=== PATIENT | female | born 1995 | race Caucasian/White ===

== ENCOUNTER → 2019-12-14 12:48 | Outpatient (CLI) | payer BC, SELFPAY ==
[2019-12-15 13:11] LABS: Covid-19 Nasal PCR Sendout Lex POSITIVE
== END ==
PROVIDERS: PCP Internal Medicine Adolescent Medicine; Visit Provider Internal Medicine Adolescent Medicine
DX: U07.1 COVID-19 (principal)
CPT/HCPCS: U0004

== ENCOUNTER → 2020-02-28 10:57 | Outpatient (CLI) | payer BC, SELFPAY ==
--- NOTE | 2020-02-28 11:01 | XR_ITS ---
PROCEDURE: XR PELVIS 1-2V CLINICAL INDICATION: misplaced iud COMPARISON: No exams were available for comparison TECHNIQUE: XR Pelvis AP View FINDINGS: There is an IUD in place. There is malpositioning of the IUD with the IUD rotated toward the left 90 degrees from a normal location. Intrauterine location cannot be confirmed based on this single AP view. No significant degenerative change. No lytic or blastic change. IMPRESSION: Malpositioned IUD which is noted in the upper pelvic region is rotated clockwise by 90 degrees from a normal expected position. Cannot confirm intrauterine location based on single view. Dictated by: Uriah Kamara MD 02/28/2020 11:25 Uriah Kamara MD in [place] 02/28/2020 11:25
== END ==
PROVIDERS: PCP Internal Medicine Adolescent Medicine; Visit Provider Obstetrics & Gynecology
DX: T83.32XA Displacement of intrauterine contraceptive device, initial encounter (principal); T83.39XA Other mechanical complication of intrauterine contraceptive device, initial encounter
CPT/HCPCS: 72170

== ENCOUNTER → 2020-03-01 15:27 | Outpatient (CLI) | payer BC, SELFPAY ==
[2020-03-01 16:59] LABS: Basophils % 0.4 % (0.1-2.0); Eosinophils # 0.1 K/mm3 (0.0-0.4); Eosinophils % 1.1 % (0.1-12.0); Hematocrit 40.5 % (37.0-47.0); Lymphocytes # 3.3 K/mm3 (0.7-4.5); Lymphocytes % 45.6 % (10-50); Mean Corpuscular HGB Conc 32.1 g/dL (31.8-35.4); Mean Corpuscular Hemoglobin 29.4 pg (27.0-31.2); Mean Corpuscular Volume 91.5 fl (81-99); Mean Platelet Volume 6.9 fl (7.4-10.4); Monocytes # 0.6 K/mm3 (0.1-1.0); Neutrophils # 3.1 K/mm3 (1.8-7.8); Neutrophils % 43.9 % (37.0-80.0); Platelet Count 298 K/mm3 (142-424); Red Blood Count 4.43 M/mm3 (4.20-5.40); Red Cell Distribution Width 12.4 % (11.5-17.5); White Blood Count 7.2 K/mm3 (4.8-10.8)
[2020-03-01 18:01] LABS: Alanine Aminotransferase 19 U/L (12-78); Albumin Level 4.8 g/dl (3.5-5.0); Alkaline Phosphatase 75 U/L (38-126); Aspartate Amino Transferase 24 U/L (14-36); Bilirubin,Total 0.5 mg/dl (0.2-1.3); Blood Urea Nitrogen 13 mg/dl (7-17); Carbon Dioxide 28 mmol/L (22.0-30.0); Chloride 103 mmol/L (98-107); Potassium 3.8 mmoL/L (3.5-5.1); Sodium 142 mmol/L (136-145); Total Protein,Serum 7.5 g/dl (6.3-8.2)
[2020-03-01 18:15] LABS: Calcium 9.8 mg/dl (8.4-10.2); Glucose 96 mg/dl (74-100)
[2020-03-01 19:16] LABS: HCG Qualitative, Serum Negative (Negative)
[2020-03-01 19:41] LABS: Anion Gap 14.8 mEq/L (5-15); GFR (African American) 149 ML/MIN (>60)
[2020-03-01 19:42] LABS: Albumin/Globulin Ratio 1.8 (1.1-1.8); Estimated Glomerular Filt Rate 123 ml/min (>60); Globulin 2.7 g/dL (1.3-3.2)
[2020-03-01 19:50] LABS: Coronavirus 19 IgG Antibody Positive (Negative); Coronavirus 19 IgM Antibody Negative (Negative)
[2020-03-01 21:22] LABS: Amphetamine/Metha Screen,Urine Negative ng/ml (<1000); Benzodiazepines Screen,Urine Negative ng/ml (<200)
[2020-03-01 21:23] LABS: Barbiturates Screen,Urine Negative ng/ml (<200)
[2020-03-01 21:24] LABS: Cannabinoid Screen,Urine Negative ng/ml (<50); Cocaine Screen,Urine Negative ng/ml (<300)
[2020-03-01 21:25] LABS: Methadone Screen,Urine Negative ng/ml (<300)
[2020-03-01 21:26] LABS: Opiate Screen,Urine Negative ng/ml (<300); Phencyclidine Screen,Urine Negative ng/ml (<25)
== END ==
PROVIDERS: Visit Provider Obstetrics & Gynecology
DX: Z01.818 Encounter for other preprocedural examination (principal); R10.2 Pelvic and perineal pain; T83.9XXA Unspecified complication of genitourinary prosthetic device, implant and graft, initial encounter; T83.32XA Displacement of intrauterine contraceptive device, initial encounter
CPT/HCPCS: 36415; 80053; 80305; 84703; 85025; 86328

== ENCOUNTER 2020-03-03 10:53 | Day surgery (SDC) | payer BC, SELFPAY ==
[2020-03-01 11:22] VITALS: BMI 26.6
[2020-03-03] VITALS (11 sets, daily range): BP systolic 124–146; BP diastolic 68–92; PULSE 69–101; RESP 16–18; TEMP 36.2–36.7; O2SAT 97–99
--- NOTE | 2020-03-03 13:13 | P.PN_ITS ---
[facility] Anesthesia Checklist - Patient Identification Patient Identification: Arm Band, Verbal (Name & ) - Structural Data Admitted From: Home Planned Operative Procedure/s: ex lap Consent for Planned Operative Procedure(s) Verified: Yes Verified Documents: History and Physical - NPO Status Verified Time NPO: 00:00 - Chart Verification Results Verified: CBC, BMP - Additional verifications Patient : No Anesthesia Reactions: No Hx Blood Transfusions: No Blood Transfusion Reaction: No Cephalosporin Allergy: No Previous Colonoscopy: No - Cardiovascular Assessment Heart Sounds: S1 & S2 Pulse Strength: Baseline Pulse Rhythm: Regular Peripheral Edema: No - Airway Assessment C-Spine Mobility Assessed: Yes TMJ Mobility Assessed: Yes Dentition: Good Dentition - Neurological Assessment Level of Consciousness: Awake, Alert, Appropriate Hx Seizures: No Numbness or tingling in extremities: No - Anesthesia Plan Anesthesia Risk discussed: Yes Anesthesia Plan: Verified ASA Class: I Anesthesia Type: General [facility] History I have reviewed the patient's past medical history: Yes Medical History: Denies:: Cancer, Diabetes Mellitus Type 1, Diabetes Mellitus Type 2, MRSA, Seizures *Have you ever received a pneumonia vaccine?: No *Have you received a flu vaccine this season?: Yes Other Medical History: Denies: Blood Transfusion Reaction Anesthesia experience/problems:: none Other Surgeries: Yes: No Previous Surgery Amputation: No Fractures: No - *Social History Last grade of school completed: High school graduate Smoking Status: Never smoker Alcohol Intake: never Substance Use Type: denies use *Occupational Status:: employed *Travel in the last 8 weeks: None Family Hx:: Hypertension
--- NOTE | 2020-03-03 14:50 | P.PN_ITS ---
[facility] Anesthesia Record Part I Intake, IV Amount: 600 Estimated blood loss (mL): 10 Urine output (mL): 0 Blood Pressure: 140/77 SaO2: 98 Pulse Rate: 69 Respiratory Rate: 16 Temperature: 97.1 F Patient is:: Drowsy, Stable Stable to PACU at:: 14:45
--- NOTE | 2020-03-03 15:00 | HMH.OPNOTE ---
Date of procedure: 03/03/20 Pre-op Diagnosis:: 1. IUD located in abdominal cavity 2. Pelvic pain Post-op Diagnosis:: same Procedure performed:: 1. Diagnostic laparoscopy 2. Removal of abdominal foreign body (IUD) 3. Nexplanon insertion Surgeon:: Emma Wilkes MD [employer] OPERATOR:: Nuno Urrutiaty Anesthesia: GETA Estimated blood loss (mL): 5 Operative findings:: Mirena IUD located in abdomen, entangled in omentum Operative note:: The patient was taken to the operating room and general anesthesia was administered. She was prepped/draped in lithotomy position. A uterine manipulator was placed without difficulty. Gloves were changed and attention was turned to the abdomen. A 5mm skin incision was made in the umbilical fold and the Verees needle was inserted through the peritoneum and into the abdominal cavity in standard fashion. The abdomen was insufflated with CO2 gas. A 5mm non-bladed trocar was inserted directly into the abdominal cavity and appropriate placement was confirmed with the laparoscope. No intra-abdominal injuries occurred during entry into the abdominal cavity, as confirmed visually with the laparoscope. The patient was placed in trendelenburg and a 8mm skin incision was made 2cm above the pubic symphysis. A 8mm non-bladed trocar was inserted under direct visualization, without complication. The uterus was elevated out of the pelvis in order to better visualize the anatomy. The uterus was elevated for closer inspection, but the IUD was not located in the pelvic cul-de-sac. A search of the abdomen identified the IUD entangled in omentum in the right mid abdomen. No evidence of bowel injury was observed. The IUD string was grasped and the IUD was from the omentum. The IUD was then removed through the 8mm trocar, intact. It was sent for pathology. The pelvis and abdomen were irrigated with warmed normal saline. The uterine manipulator was removed. The abdomen was then evacuated of gas and all trocars removed. The skin incisions were closed with Dermabond. The inner aspect of left upper extremity prepped with Hibiclense Optimal insertion location identified and marked, approximately 10 cm distal to medial epicondyle 5cc lidocaine with epi injected subcutaneous in marked location Subdermal insertion of preloaded Nexplanon device using disposable applicator in same location, slightly anterior to mariano, in order to avoid subdermal transport of ink used to mariano the location The Nexplanon device was deployed into the desired subdermal location, without complication Successful placement of the (intact) device confirmed by palpation Insertion site hemostatic and bandage applied The patient tolerated the procedure well. Sponge/lap/needle/instrument counts were correct at conclusion of procedure. She was taken out of lithotomy position and awakened from anesthesia, and was taken to the recovery room in stable condition. Condition: stable Disposition: PACU Specimens:: IUD sent to pathology Complications:: none
--- NOTE | 2020-03-03 16:26 | HMH.ANESII ---
[facility] Anesthesia Record Part II Discharge Time: 15:20 Destination: Surgical Day Care (OP Surgery) PACU nurse assessment reviewed?: Yes Patient Condition:: Good Anesthesia Complications:: None Swallowing reflex intact?: Yes Cyanosis?: No Blood Pressure: 131/75 Pulse Rate: 74 Temperature: 97.6 F Mental Status: Alert & Oriented Pain level:: 0 Nausea and/or vomitting:: None Intake, IV Amount: 0
== END 2020-03-03 15:55 | disposition home or self-care (01) ==
LOC: OR 10:54
PROVIDERS: PCP Internal Medicine Adolescent Medicine; Visit Provider Obstetrics & Gynecology
PROC: (CPT 49320; principal; 2020-03-03 13:00)
DX: T83.32XA Displacement of intrauterine contraceptive device, initial encounter (principal); R10.2 Pelvic and perineal pain
CPT/HCPCS: 58301; 11981; 96374; J2405; J2710

== ENCOUNTER → 2022-08-16 10:43 | Outpatient (CLI) | payer BC, SELFPAY ==
[2022-08-16 13:03] LABS: Basophils # 0.1 K/mm3 (0-0.2); Basophils % 0.9 % (0.1-2.0); Eosinophils # 0.1 K/mm3 (0.0-0.4); Eosinophils % 1.3 % (0.1-12.0); Hematocrit 41.7 % (37.0-47.0); Hemoglobin 13.3 g/dL (12.2-16.2); Lymphocytes # 3.2 K/mm3 (0.7-4.5); Lymphocytes % 39.9 % (10-50); Mean Corpuscular HGB Conc 31.8 g/dL (31.8-35.4); Mean Corpuscular Hemoglobin 28.7 pg (27.0-31.2); Mean Corpuscular Volume 90.3 fl (81-99); Mean Platelet Volume 7.9 fl (7.4-10.4); Monocytes # 0.6 K/mm3 (0.1-1.0); Monocytes % 7.4 % (1.7-9.3); Neutrophils # 4.1 K/mm3 (1.8-7.8); Neutrophils % 50.4 % (37.0-80.0); Platelet Count 389 K/mm3 (142-424); Red Blood Count 4.61 M/mm3 (4.20-5.40); Red Cell Distribution Width 13.1 % (11.5-17.5); White Blood Count 8.1 K/mm3 (4.8-10.8)
[2022-08-16 14:03] LABS: Chloride 104 mmol/L (98-107); Sodium 139 mmol/L (136-145)
[2022-08-16 14:05] LABS: Blood Urea Nitrogen 11 mg/dl (7-17); Estimated Glomerular Filt Rate 120 ml/min (>60); GFR (African American) 145 ML/MIN (>60)
[2022-08-16 14:06] LABS: Alanine Aminotransferase 19 U/L (12-78); Albumin Level 4.8 g/dl (3.5-5.0); Albumin/Globulin Ratio 1.6 (1.1-1.8); Alkaline Phosphatase 67 U/L (38-126); Aspartate Amino Transferase 23 U/L (14-36); Bilirubin,Total 0.4 mg/dl (0.2-1.3); Calcium 9.7 mg/dl (8.4-10.2); Carbon Dioxide 26 mmol/L (22.0-30.0); Glucose 101 mg/dl (74-100); Total Protein,Serum 7.8 g/dl (6.3-8.2)
[2022-08-16 14:27] LABS: HCG,Quantitative < 2 mIU/ml (0-5.42)
== END ==
PROVIDERS: PCP Nurse Practitioner Family; Visit Provider Nurse Practitioner Obstetrics & Gynecology
DX: Z30.09 Encounter for other general counseling and advice on contraception (principal)
CPT/HCPCS: 36415; 80053; 84702; 85025

== ENCOUNTER 2022-08-20 07:41 | Day surgery (SDC) | payer BC, SELFPAY ==
[2022-08-15 13:35] VITALS: BMI 30.9
[2022-08-20] VITALS (10 sets, daily range): BP systolic 123–161; BP diastolic 51–91; PULSE 68–109; RESP 12–18; TEMP 36.3–43; O2SAT 92–99
--- NOTE | 2022-08-20 09:25 | EXP.ANES.CKL ---
[facility] Disclaimer: The information contained in this section may have been updated after the patient was seen, as this information can be updated by other users. Medical History Hypertension Family History Other Hypertension Social History (Updated 08/20/22 @ 08:12 by Marnie Rivero RN) Smoking Status: Never smoker alcohol intake: current substance use type: denies use current occupational status: employed Travel in the last 8 weeks: None [facility] Anesthesia Checklist Patient Identification Patient Identification: Arm Band and Verbal (Name & ) Structural Data Admitted From: Home Planned Operative Procedure/s: Laparascopic Bilateral Salpingectomy Consent for Planned Operative Procedure(s) Verified: Yes Verified Documents: Surgical Consent NPO Status Verified Time NPO: 00:00 Chart Verification Results Verified: None, CBC and HCG Additional verifications Anesthesia Reactions: No Hx Blood Transfusions: No Blood Transfusion Reaction: No Airway Assessment C-Spine Mobility Assessed: Yes TMJ Mobility Assessed: Yes Dentition: Good Dentition Neurological Assessment Level of Consciousness: Awake, Alert and Appropriate Anesthesia Plan Anesthesia Risk discussed: Yes ASA Class: I Anesthesia Type: General
--- NOTE | 2022-08-20 10:04 | EXP.ANES.II ---
[facility] Anesthesia Record Part II Anesthesia Record Part II Anesthesia Complications:: None
--- NOTE | 2022-08-20 10:05 | P.PNANES_ITS ---
[facility] Anesthesia Record Part I Anesthesia Record I Intake, IV Amount: 900 Estimated blood loss (mL): 50 Urine output (mL): 400 Blood Pressure: 123/51 SaO2: 92 Pulse Rate: 70 Respiratory Rate: 12 Temperature: 97.6 F Patient is:: Drowsy and Stable Stable to PACU at:: 10:04
--- NOTE | 2022-08-20 10:14 | P.OP_ITS ---
Date of procedure: 08/20/22 Pre-op Diagnosis:: Desire for sterilization Post-op Diagnosis:: Desire for sterilization Procedure performed:: Laparoscopic bilateral salpingectomy Surgeon:: Bright Guy MD MENTAL HEALTH COORDINATOR:: Iván Kwon Anesthesia: NICOLA Estimated blood loss (mL): 50 Clinical Note:: She is a 27-year-old lady who expressed desire for sterilization. The risks and benefits as well as the irreversibility of bilateral salpingectomy were discussed with the patient prior to surgery. Operative findings:: She had a normal-appearing anteverted uterus. The tubes appeared normal. They were followed to their fimbriated ends. The ovaries appeared normal. The deep pelvis appeared normal. The upper abdomen as well as the appendix appeared normal. The gallbladder was seen and appeared normal. Operative note:: She was taken to the operating room where general anesthesia was found be adequate. She was prepped and draped in normal sterile fashion in the semilithotomy position. A weighted speculum was placed in the vagina and the anterior lip of the cervix was grasped with a tenaculum. I then inserted a Tamela uterine manipulator into the cervical os. The balloon was then insufflated. I changed gloves and injected 10 cc of 0.5% ropivacaine around her umbilicus and made a small incision within the umbilicus. I inserted a Veress needle into the abdominal cavity. The peritoneal cavity was then insufflated with carbon dioxide gas to a pressure of 20 mmHg. I then inserted a 5 millimeter trocar under direct vision. I injected through and through the pubic hairline, made a small incision here and inserted an 8 mm trocar under direct vision. I identified the inferior epigastric artery on the left side, went lateral to these and injected through and through. I then placed a 5 mm trocar here under direct vision. The pelvis and upper abdomen were then inspected and the findings were as previously dictated. I grasped the right tube at the cornua and using harmonic scalpel on coagulation mode I cut through the tube. I then grasped the distal tube and using harmonic scalpel cut along the mesosalpinx. The tube was removed through 8 mm trocar site. This was similarly performed on the patient's left side. I then injected 30 cc of 0.5% ropivacaine into the pelvis. After assuring hemostasis the gas was let out of the abdomen and hemostasis was once again assured. The abdomen was then reinsufflated. The secondary trochars were removed under direct vision. The gas was let out her abdomen. The primary trocar was then removed. The 8 mm trocar site was closed deeply with 2-0 Vicryl suture followed by subcuticular 4-0 Monocryl suture. The 5 mm trocar sites were closed with subcuticular 4-0 Monocryl. The left lower quadrant trocar site had a small bleeder just underneath the skin and I used interrupted through and through sutures here to obtain excellent hemostasis and reapproximate the skin. Sterile dressings were applied. The patient tolerated the procedure well and was taken to the recovery room in excellent condition. All sponge instrument and needle counts were correct. The estimated blood loss was less than 50 cc. Condition: stable Disposition: PACU Specimens:: Bilateral fallopian tubes Complications:: None
--- NOTE | 2022-08-26 07:41 | EXP.ANES.II ---
[facility] Anesthesia Record Part II Anesthesia Record Part II Discharge Time: 10:34 Destination: Surgical Day Care (OP Surgery) PACU nurse assessment reviewed?: Yes Patient Condition:: Good Anesthesia Complications:: None Swallowing reflex intact?: Yes Cyanosis?: No Blood Pressure: 161/82 Pulse Rate: 97 Temperature: 97.3 F Mental Status: Alert & Oriented Pain level:: 0 Nausea and/or vomitting:: None Intake, IV Amount: 0
[2022-08-26 07:42] VITALS: BP 161/82; PULSE 97; TEMP 36.3
== END 2022-08-20 11:06 | disposition home or self-care (01) ==
PROVIDERS: PCP Nurse Practitioner Family; Visit Provider Nurse Practitioner Obstetrics & Gynecology
PROC: (CPT 58661; principal; 2022-08-20 09:15)
DX: Z30.2 Encounter for sterilization (principal)
CPT/HCPCS: 58661; 96374; J2405

== ENCOUNTER → 2023-03-05 14:01 | Outpatient (CLI) | payer BC, SELFPAY ==
[2023-03-05 14:50] LABS: Basophils # 0.1 K/mm3 (0-0.2); Basophils % 0.7 % (0.1-2.0); Eosinophils # 0.1 K/mm3 (0.0-0.4); Eosinophils % 1.2 % (0.1-12.0); Hematocrit 41.4 % (37.0-47.0); Hemoglobin 14.1 g/dL (12.2-16.2); Lymphocytes # 2.7 K/mm3 (0.7-4.5); Mean Corpuscular Hemoglobin 30.4 pg (27.0-31.2); Mean Corpuscular Volume 89.2 fl (81-99); Mean Platelet Volume 7.4 fl (7.4-10.4); Monocytes # 0.5 K/mm3 (0.1-1.0); Monocytes % 6.6 % (1.7-9.3); Neutrophils # 3.9 K/mm3 (1.8-7.8); Neutrophils % 54.5 % (37.0-80.0); Platelet Count 291 K/mm3 (142-424); Red Blood Count 4.64 M/mm3 (4.20-5.40); Red Cell Distribution Width 12.9 % (11.5-17.5); White Blood Count 7.2 K/mm3 (4.8-10.8)
[2023-03-05 16:36] LABS: Alanine Aminotransferase 40 U/L (12-78); Albumin Level 4.7 g/dl (3.5-5.0); Albumin/Globulin Ratio 1.6 (1.1-1.8); Alkaline Phosphatase 59 U/L (38-126); Anion Gap 15.9 mEq/L (5-15); Aspartate Amino Transferase 44 U/L (14-36); Bilirubin,Total 0.4 mg/dl (0.2-1.3); Blood Urea Nitrogen 10 mg/dl (7-17); Calcium 9.7 mg/dl (8.4-10.2); Carbon Dioxide 25 mmol/L (22.0-30.0); Chloride 103 mmol/L (98-107); Estimated Glomerular Filt Rate 86 ml/min (>60); GFR (African American) 104 ML/MIN (>60); Glucose 109 mg/dl (74-100); Potassium 3.9 mmoL/L (3.5-5.1); Sodium 140 mmol/L (136-145); Total Protein,Serum 7.7 g/dl (6.3-8.2)
[2023-03-05 16:46] LABS: 25-OH Vitamin D, Total 37.9 ng/mL (30-100)
[2023-03-05 17:04] LABS: Thyroid Stimulating Hormone 2.31 uIU/mL (0.465-4.68)
[2023-03-05 17:22] LABS: Vitamin B12 425 pg/mL (239-931)
== END ==
PROVIDERS: PCP Nurse Practitioner Family; Visit Provider Nurse Practitioner Family
DX: Z00.00 Encounter for general adult medical examination without abnormal findings (principal); R53.83 Other fatigue; Z68.31 Body mass index [BMI] 31.0-31.9, adult
CPT/HCPCS: 36415; 80053; 82306; 82607; 84443; 85025

== ENCOUNTER 2023-10-15 11:32 | Emergency (ER) | payer BC, SELFPAY ==
[2023-10-15 11:45] VITALS: BP 129/84; PULSE 105; RESP 21; TEMP 37.6; O2SAT 97; BMI 30.2
--- NOTE | 2023-10-15 12:03 | EXP.UTC ---
Discharge Plan Disposition Patient Disposition: Home, Self-Care Condition: Good Prescriptions Prescriptions: No Action No Known Home Medications Referrals Follow up/Referrals: Bright Guy MD [Staff Physician] - 10/15/23 1:30 pm Erlinda Rivero APRN [Primary Care Provider] - See instructions Activity Restrictions/Add. Instructions Additional Instructions/Restrictions: Follow up with Dr Guy today as scheduled Call your Family Doctor and make appoitnment tomorrow Further care per your Family Doctor and Obgyn Clinical Impressions Clinical Impression: Abdominal discomfort Discharge ED Provider: Alberta Hancock [facility] HPI General Stated complaint: Lower abd pain R side Mode of Arrival: Ambulatory Source of Information: Patient Limitations: No Limitations Time Seen by Provider: 10/15/23 12:04 Description of Symptoms (Recalled from Triage Doc. by RN): PATIENT C/O RLQ PAIN THAT HAS BEEN INTERMITTEN FOR A WHILE AND VOMITING THAT STARTED YESTERDAY HEENT Symptoms (Recalled from RN notes): No Resp Symptoms (Recalled from RN notes): No Skin Symptoms (Recalled from RN notes): No MS Symptoms (Recalled from RN notes): No Functional Status (Recalled from RN notes): WNL History of Present Illness Provider Complaint: Patient states that she has been having pain in her right lower abdomen on and off states that yesterday she started with N/V States that pain is worse when she stands up States that she had appointment with PCP but decided to come in here instead states that she is not having any pain right now it is better Related Data Home Medications Medication Instructions Recorded Confirmed No Known Home Medications 10/06/23 10/15/23 Allergies Allergy/AdvReac Type Severity Reaction Status Date / Time No Known Allergies Allergy Verified 10/15/23 13:21 Worker's Comp Is this a Worker's Comp case?: No [facility] Disclaimer: The information contained in this section may have been updated after the patient was seen, as this information can be updated by other users. Medical History Anxiety Hypertension Surgical History H/O tubal ligation Family History Other Hypertension Social History Smoking Status: Never smoker alcohol intake: current alcohol intake frequency: holidays/special occasions only substance use type: denies use current occupational status: employed Travel in the last 8 weeks: None ROS Obtained: Yes All systems reviewed & no additional complaints except as documented and Yes Systems reviewed as appropriate & no additional complaints except as documented Constitutional Constitutional: Reports system reviewed and no additional complaints, except as documented, Reports as per HPI, Denies body ache, Denies chills and Denies fever(s) ENT Ears, Nose, Mouth, and Throat: Reports system reviewed and no additional complaints, except as documented and Reports as per HPI Cardiovascular Cardiovascular: Reports system reviewed and no additional complaints, except as documented and Reports as per HPI Respiratory Respiratory: Reports system reviewed and no additional complaints, except as documented and Reports as per HPI Gastrointestinal Gastrointestingal: Reports system reviewed and no additional complaints, except as documented, as per HPI, abdominal pain (Pain in right lower quad that comes and goes not hurting now) and vomiting Physical Exam General General appearance: alert and in no apparent distress ENT ENT exam: Present mucous membranes moist Respiratory Respiratory exam: Present normal lung sounds bilaterally; Absent respiratory distress or wheezes Cardiovascular Cardiovascular exam: Present regular rate, normal rhythm and normal heart sounds Abdominal Exam Abdominal exam: Present soft and normal bowel sounds; Absent distention, tenderness, guarding, rebound, rigidity or heel tap sign Neurological Exam Neurological exam: Present alert, oriented X3 and normal gait Medical Decision Making Kaz Inquiry Pt receiving controlled substance: No Kaz was queried for this patient: No Vital Signs: 10/15/23 11:45 Temperature 99.6 F Temperature Source Oral Pulse Rate [Left Brachial] 105 H Respiratory Rate 21 Blood Pressure [Left Arm] 129/84 Blood Pressure Mean [Left Arm] 99 Blood Pressure Source [Left Arm] Automatic Cuff Blood Pressure Position [Left Arm] Sitting 02 Sat by Pulse Oximetry 97 Oxygen Delivery Method Room Air Lab Data Lab results reviewed: Yes I reviewed the patient's lab results. Medical Decision Narrative: Patient states that she has been having pain on her right lower quad that has come and gone for awhile now States yesterday she had some N/V and started having the pain again State that she had an appointment with her PCP but canceled it and decided to come in here instead State that the pain has stopped now and no longer hurting Discussed with patient about transfer to the ED for furhter work up and evaluation but patient refused transfer states that she will now follow up with PCP Called PCP office and does have availability tomorrow Patient declined transfer to the ED spoke with OB Dept patient is a patient of Dr Sandoval Patient will do transvaginal US to rule out Ovarian cyst and she will follow up with Dr Sandoval today at 130 and PCP tomorrow for further evaluation for her concern of having gallbladder issues again discussed with patient and she does still have appendix, patient was educated and she is aware of risks and still declined transfer to the ED Patient dc'd to Dr Uriostegui office where he will read and discuss US findings
[2023-10-15 12:05] LABS: Apearance,Urine Clear (Clear); Bilirubin,Urine Negative (Negative); Blood, Urine Negative (Negative); Color,Urine Dark Yellow (Yellow); Glucose,Urine (UA) Negative (Negative); Ketones,Urine Negative (Negative); PH,Urine 5.5 (5.0-8.5); Protein,Urine Trace (Negative); Specific Gravity, Urine >= 1.030 (1.005-1.030); UTC Leukocyte Esterase,Urine Negative (Negative); UTC Nitrate,Urine Negative (Negative); Urobilinogen,Urine 0.2 EU/dl (0.2)
[2023-10-15 12:17] LABS: UTC Pregnancy Test, Urine Negative (Negative)
--- NOTE | 2023-10-15 12:22 | US_ITS ---
PROCEDURE: US TRANSVAGINAL CLINICAL INDICATION: ? right ovarian cyst COMPARISON: No exams were available for comparison FINDINGS: Transvaginal sonographic images of the pelvis were obtained. UTERUS: 7.9 cm x 6.6 cmx 5.6 cm retroverted and retroflexed with a combined endometrial thickness of 10.1mm. LEFT OVARY: 2.8 cmx1.3cm with a volume of . There are several small follicles in the left ovary. The largest measures 0.66 cm. RIGHT OVARY: 3.6 cmx 3.0cmx1.9 cm with a volume of 11ml. There is a follicle measuring 1.5 cm x 1.7 cm x 1.6 cm. The fluid has a lacy appearance consistent with a hemorrhagic cyst. The right ovary sits posterior to the uterus. Both ovaries are seen and appear normal. Doppler flow to both ovaries are seen. There is a small amount of fluid in the cul-de-sac. IMPRESSION: 1. Retroverted, retroflexed uterus normal in shape and size. 2. Left ovary is seen and appears normal. 3. The right ovary appears normal and has a 1.7 cm follicle consistent with a hemorrhagic cyst. 4. Small amount of fluid in the cul-de-sac. Dictated by: Bright Guy MD 10/15/2023 14:06 Bright Guy MD in [place] 10/15/2023 14:06
[2023-10-15 12:50] VITALS: BP 129/84; PULSE 105; RESP 21; TEMP 37.6; O2SAT 97
== END 2023-10-15 12:54 | disposition home or self-care (01) ==
PROVIDERS: Emergency Provider Nurse Practitioner; PCP Nurse Practitioner Family
DX: R10.31 Right lower quadrant pain (principal); R11.2 Nausea with vomiting, unspecified; B96.89 Other specified bacterial agents as the cause of diseases classified elsewhere
CPT/HCPCS: 76830; 81003; 81025; 87086; 99204; 99212; G0463

== ENCOUNTER 2024-12-23 08:06 | Outpatient (CLI) | payer BC, OTHER, SELFPAY ==
--- NOTE | 2024-12-23 08:30 | US_ITS ---
PROCEDURE: US TRANSVAGINAL CLINICAL INDICATION: right side abdominal/pelvic pain COMPARISON: US US TRANSVAGINAL from 10/15/2023 FINDINGS: Transvaginal sonographic images of the pelvis were obtained. UTERUS: 7.1cm x 6.2cmx 5.7 cm retroverted with a combined endometrial thickness of 7.6mm. LEFT OVARY: 3.6 cmx2.3cmx2.1cm with a volume of 9ml. There is a dominant follicle measuring 1.4 cm x 1.0 cm x 1.4 cm. There are multiple small peripheral follicles. RIGHT OVARY: 3.6 cm.6x 2.8 cmx2.1cm with a volume of 11.5ml. There is a dominant follicle measuring 1.56 cm There are several small peripheral follicles. Both ovaries are seen and appear normal. Doppler flow to both ovaries are seen. There is a moderate amount of fluid in the cul-de-sac. IMPRESSION: 1. Retroverted uterus normal in shape and size. The endometrium appears normal and measures 7.6 mm 2. Both ovaries are seen and appear normal. They both have a dominant follicle. Both ovaries have several small peripheral follicles. 3. There is a moderate amount of fluid in the cul-de-sac. Dictated by: Bright Guy MD 12/23/2024 14:37 Bright Guy MD in [place] 12/23/2024 14:37
== END 2024-12-23 23:59 | disposition home or self-care (01) ==
LOC: RAD 08:07
PROVIDERS: PCP Nurse Practitioner Family; Visit Provider Nurse Practitioner Obstetrics & Gynecology
DX: N85.4 Malposition of uterus (principal); N83.02 Follicular cyst of left ovary; N83.01 Follicular cyst of right ovary
CPT/HCPCS: 76830